=== PATIENT | male | born 1965 ===

== ENCOUNTER 2017-04-26 09:28 | Day surgery (SDC) | payer OTHER | END 2017-04-26 15:00 | disposition home or self-care (01) | LOC: AMB-ENDOS 09:28 | DX: D12.3 Benign neoplasm of transverse colon (principal); K64.1 Second degree hemorrhoids; Z86.010 Personal history of colon polyps; K92.1 Melena ==

== ENCOUNTER 2017-05-29 11:15 | Inpatient (IN) | payer OTHER ==
[~2017-05-29] VITALS: Ht 170.2 cm; Wt 86.2 kg
[2017-05-29] MEDS ORDERED: VASOTEC2.5 MG PO (13:10)
[2017-05-29] MEDS ORDERED: CARVEDILOL12.5 MG PO (13:10)
[2017-05-29] MEDS ORDERED: BUPROPION PO (13:11)
[2017-05-29] MEDS ORDERED: RESTORIL30 MG PO (13:11)
[2017-05-29] MEDS ORDERED: CLONAZEPAM0.5 MG PO (13:12)
[2017-05-29] MEDS ORDERED: TRAMADOL HCL50 MG PO (13:12)
== END 2017-06-08 14:04 | disposition home or self-care (01) | DRG 331 ==
LOC: O/R 06-05 06:54 → RECOVERY 06-05 11:15 → SURH 06-06 14:52
PROVIDERS: Colon & Rectal Surgery
PROC: 07TC4ZZ Resection of Pelvis Lymphatic, Percutaneous Endoscopic Approach (ICD-10-PCS; 2017-06-05)
PROC: 0DTU4ZZ Resection of Omentum, Percutaneous Endoscopic Approach (ICD-10-PCS; 2017-06-05)
PROC: 3E0F7GC Introduction of Other Therapeutic Substance into Respiratory Tract, Via Natural or Artificial Opening (ICD-10-PCS; 2017-06-05)
PROC: 0DTF4ZZ Resection of Right Large Intestine, Percutaneous Endoscopic Approach (ICD-10-PCS; principal; 2017-06-05 19:15)
DX: D12.2 Benign neoplasm of ascending colon (principal); I10 Essential (primary) hypertension; E66.09 Other obesity due to excess calories; Z87.891 Personal history of nicotine dependence; D12.3 Benign neoplasm of transverse colon; Z86.010 Personal history of colon polyps

== ENCOUNTER 2018-09-05 06:00 | Day surgery (SDC) | payer OTHER ==
[~2018-09-05 06:00] MED LIST: BUPROPION PO; CARVEDILOL12.5 MG PO; CLONAZEPAM0.5 MG PO; RESTORIL30 MG PO; TRAMADOL HCL50 MG PO; VASOTEC2.5 MG PO
== END 2018-09-05 12:05 | disposition home or self-care (01) ==
LOC: AMB-ENDOS 06:00
DX: K64.1 Second degree hemorrhoids (principal)